=== PATIENT | male | born 1965 | race Caucasian/White ===

== ENCOUNTER → 2017-08-31 | Outpatient (CLI) | payer BC ==
--- NOTE | 2017-08-31 10:34 | RADIOLOGY REPORT (SQ) ---
EXAM DESCRIPTION: MRI ABDOMEN COMBO COMPLETED DATE/TIME: 08/31/2017 10:10 am REASON FOR STUDY: HEPATIC LESION (K76.9) K76.9 LIVER DISEASE, UNSPECIFIED COMPARISON: Right upper quadrant ultrasound 08/24/2017 TECHNIQUE: Multiplanar multisequence imaging performed without and with contrast including sagittal, axial and coronal T2, axial T1, axial gradient fat sat T1, axial, sagittal and coronal fat sat T1 po st contrast. CONTRAST TYPE AND DOSE: 20 mL Prohance. RENAL FUNCTION: GFR > 60. LIMITATIONS: None. FINDINGS: LIVER: Multiple liver masses are present worrisome for metastatic disease. The right lobe liver is near completely replaced by tumor measuring 18 x 9 cm in size. In the left lobe liver, the re are multiple lesions, the largest is 5 cm in diameter. There are enlarged abnormal robinson hepatis lymph nodes, 4 x 2 cm, 2 x 1.4 cm, 2 x 1.7 cm in size. Normal flow signal in the main portal vein and right and left portal vein. Significant narrowing of the right hepatic vein by tumor. Right hepatic vein is, and enhances postcontrast SPLEEN: Normal size. No focal lesions. PANCREAS: No masses. No adjacent inflammation or peripancreatic fluid collections. Pancreatic duct no t dilated. GALLBLADDER: No masses. No stones. No gallbladder wall thickening or pericholecystic fluid. ADRENAL GLANDS: No significant masses or asymmetry. RIGHT KIDNEY AND URETER: No masses. No hydronephrosis. LEFT KIDNEY AND URETER: No masses. No hydronephrosis. 1.8 cm cyst left mid pole kidney. AORTA AND VESSELS: No aneurysm. No dissection. Renal arteries, SMA, celiac without stenosis. RETROPERITONEUM: No retroperitoneal adenopathy, hemorrhage or masses. BOWEL: Not well seen ABDOMINAL WALL AND PERITONEUM: No hernias. No free fluid. BONES: 2 x 1.5 cm lytic enhancing lesion in the right T8 vertebral body worrisome for metastatic dise ase OTHER: No other significant finding. IMPRESSION: Findings worrisome for metastatic disease to liver, robinson hepatis lymph nodes, and lower thoracic spine TECHNICAL DOCUMENTATION: JOB ID: [id number]- All Rights Reserved
== END ==
LOC: RAD 08:13
PROVIDERS: ATTEND Internal Medicine
DX: K76.9 Liver disease, unspecified (principal)
CPT/HCPCS: 74183; A9576

== ENCOUNTER → 2017-09-20 | Outpatient (CLI) | payer BC ==
--- NOTE | 2017-09-21 18:56 | RADIOLOGY REPORT (SQ) ---
EXAM DESCRIPTION: PET CT SKULL/THIGH COMPLETED DATE/TIME: 09/20/2017 10:22 pm REASON FOR STUDY: LIVER CANCER C22.8 MALIGNANT NEOPLASM OF LIVER, PRIMARY, UNSPECIFIED T COMPARISON: MRI abdomen 08/31/2017 Abdominal ultrasound 08/24/2017 RADIONUCLIDE AND DOSE: 11.5 mCi F18 FDG The route of agent administration: Intravenous FASTING BLOOD SUGAR: 105 mg/dl CONTRAST TYPE AND DOSE: No CT contrast given. TECHNIQUE: Blood glucose level was verified. Above dose of FDG was injected intravenously. 2-D seg mented attenuation correction images were obtained from the base of the skull to the midthighs. Nonc ontrast CT images were obtained for attenuation correction and fusion with emission images. CT image s were performed without oral or intravenous contrast and are not sensitive for parenchymal lesions. A series of overlapping emission PET images were obtained. Images reviewed and manipulated at [facility] work station by the radiologist. Images stored on PACS. LIMITATIONS: None. FINDINGS: HEAD AND NECK: No areas of abnormal metabolic activity in the soft tissues of the head and neck. Surgical clips post thyroidectomy CHEST: Hypermetabolic 2.4 x 1.1 cm left supraclavicular lymph node image 63, with SUV of 7.6. Hypermetabolic mediastinal adenopathy as follows: Right paratracheal 1.7 x 1.6 cm node image 78, SUV 5.1. Sub- carinal 2.9 x 4.2 cm node image 92, SUV 12.4 Left hilar 1.9 cm node image 93, SUV 6.3. Too numerous to count lung masses are present. Index nodules are as follows: Right upper lobe nodule 1.8 x 1.7 cm axial image 76, 2.6 SUV Right lower lobe 2.4 x 2.4 cm nodule axial image 105, 7.5 SUV Left lower lobe 2 x 2 cm nodule image 78, 5.4 SUV ABDOMEN AND PELVIS: The liver is near completely replaced with hypermetabolic tumor with SUV of 8.7 PROXIMAL LOWER EXTREMITIES: No areas of abnormal metabolic activity in the soft tissues of the lower extremities. BONES: Small bony metastatic lesions are present in the sternum and right ischium ADDITIONAL CT FINDINGS: Multiple old healed left rib fractures OTHER: Estimated liver background SUV 2.0. Blood pool background SUV 1.5 IMPRESSION: Heaviest burden of tumor is in the liver Mediastinal and left supraclavicular adenopathy with multiple pulmonary nodules worrisome for metasta tic disease TECHNICAL DOCUMENTATION: JOB ID: [id number] [employer]- All Rights Reserved
== END ==
LOC: RAD 19:20
PROVIDERS: ATTEND Internal Medicine
DX: C22.8 Malignant neoplasm of liver, primary, unspecified as to type (principal); R91.8 Other nonspecific abnormal finding of lung field
CPT/HCPCS: 78815; A9552

== ENCOUNTER 2017-09-23 09:11 | Day surgery (SDC) | payer BC ==
[2017-09-23 10:05] LABS: HEMATOCRIT 42.9 % (37.9-51.0); HEMOGLOBIN 14.2 g/dL (13.5-17.0); HGB HCT DIFFERENCE -0.3; MEAN CORPUSCULAR HEMOGLOBIN 28.9 pg (27.0-33.4); MEAN CORPUSCULAR VOLUME 88 fl (80-97); RED BLOOD COUNT 4.91 10^6/uL (4.35-5.55); RED CELL DISTRIBUTION WIDTH 14.8 % (11.5-14.0); WHITE BLOOD COUNT 6.7 10^3/uL (4.0-10.5)
[2017-09-23 10:06] LABS: PARTIAL THROMBOPLASTIN TIME 29.1 SEC (23.5-35.8); PROTHROMBIN TIME 14.1 SEC (11.4-15.4)
[2017-09-23 10:27] LABS: BLOOD UREA NITROGEN 14 mg/dL (7-20); CREATININE RESULT 1.04 mg/dL (0.52-1.25)
[2017-09-23] MEDS ORDERED: MIDAZOLAM 2 MG/2 ML INJ ONE (10:28)
[2017-09-23] MEDS ORDERED: FENTANYL CITRATE INJ/PF 100 MCG/2 ML AMPUL ONE (10:29)
[2017-09-23] MEDS ORDERED: ONDANSETRON HCL INJ/PF 4 MG/2 ML SDV ONE (11:04)
--- NOTE | 2017-09-23 13:34 | RADIOLOGY REPORT (SQ) ---
EXAM DESCRIPTION: CT BIOPSY LIVER; CT NEEDLE PLACEMENT COMPLETED DATE/TIME: 09/23/2017 11:56 am REASON FOR STUDY: NEOPLASM OF LIVER; NEOPLASM OF LIVER, LIVER BX C22.8 MALIGNANT NEOPLASM OF LIVER, PRIMARY, UNSPECIFIED T C73 MALIGNANT NEOPLASM OF THYROID GLAND COMPARISON: Abdominal ultrasound 08/24/2017 MRI abdomen 08/31/2017 PET-CT 09/20/2017 TECHNIQUE: After obtaining informed consent, the patient was brought to the CT suite and was placed supine on the CT gurney. The patient was prepped and draped in the usual sterile fashion . Axial yoandy ges were obtained for targeting of theinferior right lobe liver. An appropriate access site was selec anirudh. IV sedation was administered and physician direction by the registered nurse using 1 milligrams of Versed and 75 micrograms of fentanyl. Physiologic monitoring was provided before, during, and afte r sedation. The total sedation time was 35 minutes. Documentation face to face time, the performing proceduralist, spent monitoring the patient: 8minutes . Noncontrasted CT of the liver was performed to localize an approach for the right lobe liver biopsy . A percutaneous site was marked. Time out was performed. After skin prep and local lidocaine for skin and deep tissue anesthesia, a coaxial biopsy needle sys tem was used to obtain six 18 gauge cores of tissue from the right lobe liver. These were submitted to the lab in formalin. Biopsy tract was embolized with a Gelfoam plug. No immediate postprocedure complications. Total of 3.[address] fluoro was used. All CT scanners at this facility use dose modulation, iterative reconstruction, and/or weight based d osing when appropriate to reduce radiation dose to as low as reasonably achievable (ALARA). [facility]: Dose Right [facility]: CareDose [facility]: Dose Right [facility]: Teradose 4D [facility]: [employer] RADIATION DOSE: CT Rad equipment meets quality standard of care and radiation dose reduction techniq ues were employed. CTDIvol: 20.4 mGy. DLP: 554 mGy-cm. mGy. LIMITATIONS: None. FINDINGS: CT guided liver biopsy as detailed above. IMPRESSION: CT GUIDED RIGHT LOBE LIVER MASS LIVER BIOPSY PERFORMED ABOVE. PATHOLOGY PENDING. N O IMMEDIATE COMPLICATIONS. COMMENT: Patient medication list reviewed:Yes- Quality ID# [id number]:Eligible professional attests to docu menting in the medical record they obtained, updated, or reviewed the patient's current medications.. Quality ID 145: Final reports for procedures using fluoroscopy that document radiation exposure anahi nathaly, or exposure time and number of fluorographic images (if radiation exposure indices are not avail able) TECHNICAL DOCUMENTATION: JOB ID: [id number] Quality ID # [id number]: Final reports with documentation of one or more dose reduction techniques (e.g., A utomated exposure control, adjustment of the mA and/or kV according to patient size, use of iterative reconstruction technique) 2010 [email or web address]- All Rights Reserved
[2017-09-23 14:09] VITALS: BP 151/85
== END 2017-09-23 14:00 | disposition home or self-care (01) ==
LOC: RAD 09:11
PROVIDERS: ATTEND Internal Medicine
PROC: 0FB13ZX Excision of Right Lobe Liver, Percutaneous Approach, Diagnostic (ICD-10-PCS; principal; 2017-09-23)
DX: C22.7 Other specified carcinomas of liver (principal); E89.0 Postprocedural hypothyroidism; Z85.850 Personal history of malignant neoplasm of thyroid; Z79.899 Other long term (current) drug therapy; Z87.891 Personal history of nicotine dependence
CPT/HCPCS: 36415; 84520; 82565; 85027; 85610; 85730; 88342 ×2; 88341 ×2; 88305 ×2; 88313 ×2; 77012; 47000; J2250; J3010; J2405

== ENCOUNTER → 2017-10-02 | Outpatient (CLI) | payer BC ==
[2017-10-02 11:12] LABS: ALANINE AMINOTRANSFERASE 69 U/L (21-72); ALBUMIN 3.7 g/dL (3.5-5.0); ALKALINE PHOSPHATASE 243 U/L (38-126); ANION GAP 6 (5-19); ASPARTATE AMINO TRANSFERASE 144 U/L (17-59); BILIRUBIN,DIRECT 0.5 mg/dL (0.0-0.4); BILIRUBIN,TOTAL 1.8 mg/dL (0.2-1.3); BLOOD UREA NITROGEN 14 mg/dL (7-20); CALCIUM 11.8 mg/dL (8.4-10.2); CARBON DIOXIDE 33 mmol/L (22-30); CHLORIDE 102 mmol/L (98-107); GLUCOSE 91 mg/dL (75-110); POTASSIUM 4.5 mmol/L (3.6-5.0); SODIUM 141.4 mmol/L (137-145); TOTAL PROTEIN 6.9 g/dL (6.3-8.2)
== END ==
LOC: OD 09:50
DX: C22.1 Intrahepatic bile duct carcinoma (principal); E83.52 Hypercalcemia
CPT/HCPCS: 36415; 80053

== ENCOUNTER → 2017-10-07 | Outpatient (CLI) | payer BC ==
[2017-10-07 14:12] LABS: ALANINE AMINOTRANSFERASE 73 U/L (21-72); ALBUMIN 3.7 g/dL (3.5-5.0); ALKALINE PHOSPHATASE 266 U/L (38-126); ANION GAP 10 (5-19); ASPARTATE AMINO TRANSFERASE 136 U/L (17-59); BILIRUBIN,DIRECT 0.6 mg/dL (0.0-0.4); BILIRUBIN,TOTAL 1.6 mg/dL (0.2-1.3); BLOOD UREA NITROGEN 11 mg/dL (7-20); CALCIUM 11.2 mg/dL (8.4-10.2); CARBON DIOXIDE 29 mmol/L (22-30); CHLORIDE 102 mmol/L (98-107); GLUCOSE 118 mg/dL (75-110); POTASSIUM 4.2 mmol/L (3.6-5.0); SODIUM 140.9 mmol/L (137-145); TOTAL PROTEIN 6.8 g/dL (6.3-8.2)
== END ==
LOC: OD 12:50
DX: C22.1 Intrahepatic bile duct carcinoma (principal); E83.52 Hypercalcemia
CPT/HCPCS: 36415; 80053

== ENCOUNTER → 2017-11-13 | Outpatient (CLI) | payer BC, MEDICAID ==
--- NOTE | 2017-11-14 14:45 | RADIOLOGY REPORT (SQ) ---
EXAM DESCRIPTION: MRI ABDOMEN COMBO COMPLETED DATE/TIME: 11/13/2017 7:37 pm REASON FOR STUDY: INTRAHEPATIC BILE DUCT CARCINOMA COMPARISON: 08/31/2017 TECHNIQUE: Axial T2, T2 fat sat weighted sequences without contrast. Images saved to PACs. LIMITATIONS: Body habitus. Motion. Patient unable to complete remaining sequences including post-c ontrast sequences. FINDINGS: Increase in ascites which is now all moderate. Increase in size and number of hepatic les ions since the prior. More extensive involvement of the left lobe. Kidneys, pancreas, spleen unrema rkable. No evidence of aortic aneurysm. Multiple pulmonary nodules. IMPRESSION: Interval disease progression in the liver and lungs. TECHNICAL DOCUMENTATION: JOB ID: [id number] [employer]- All Rights Reserved
== END ==
LOC: RAD 17:43
PROVIDERS: ATTEND Nurse Practitioner Primary Care
DX: C22.1 Intrahepatic bile duct carcinoma (principal)
CPT/HCPCS: 74183; 82565

== ENCOUNTER 2017-12-07 13:59 | Emergency (ER) | payer BC, MEDICAID ==
[2017-12-07] MEDS ORDERED: FUROSEMIDE INJ/PF 40 MG/4 ML SDV IV ONE (14:34)
--- NOTE | 2017-12-07 14:36 | ER Document Report ---
ED Medical Screen (RME) - General Chief Complaint: Abdominal Pain Stated Complaint: ABDOMINAL PAIN Time Seen by Provider: 12/07/17 14:33 Notes: metastatic liver cancer, has severe abd pain/distention and sob TRAVEL OUTSIDE OF THE [place] IN LAST 30 DAYS: No - Related Data Allergies/Adverse Reactions: No Known Allergies Allergy (Verified 12/07/17 13:59) Past Medical History - Social History Chew tobacco use (# tins/day): No Frequency of alcohol use: None Drug Abuse: None - Past Medical History Cardiac Medical History: Reports: Hx Hypertension - ON MEDICATION Denies: Hx Coronary Artery Disease, Hx Heart Attack Pulmonary Medical History: Denies: Hx Asthma, Hx Bronchitis, Hx COPD, Hx Pneumonia Neurological Medical History: Denies: Hx Cerebrovascular Accident, Hx Seizures Renal/ Medical History: Denies: Hx Peritoneal Dialysis Musculoskeltal Medical History: Reports Hx Arthritis - BACK Past Surgical History: Reports: Hx Orthopedic Surgery, Hx Thyroid Surgery - Immunizations Hx Diphtheria, Pertussis, Tetanus Vaccination: No - UNSURE History of Influenza Vaccine for 07/2017 - 12/2017 Season: No Physical Exam - Vital signs Vitals: Temp Pulse Resp BP Pulse Ox 98.5 F 108 H 18 140/92 H 97 12/07/17 14:03 12/07/17 14:03 12/07/17 14:03 12/07/17 14:03 12/07/17 14:03 Course - Vital Signs Vital signs: Temp Pulse Resp BP Pulse Ox 98.5 F 108 H 18 140/92 H 97 12/07/17 14:03 12/07/17 14:03 12/07/17 14:03 12/07/17 14:03 12/07/17 14:03
--- NOTE | 2017-12-07 15:18 | RADIOLOGY REPORT (SQ) ---
EXAM DESCRIPTION: CHEST SINGLE VIEW COMPLETED DATE/TIME: 12/07/2017 2:58 pm REASON FOR STUDY: sob COMPARISON: PET-CT 09/20/2017 EXAM PARAMETERS: NUMBER OF VIEWS: One view. TECHNIQUE: Single frontal radiographic view of the chest acquired. RADIATION DOSE: NA LIMITATIONS: None. FINDINGS: LUNGS AND PLEURA: Multiple lung metastatic nodules are present bilaterally. No acute infiltrates. No pleural effusion. No pneumothorax. MEDIASTINUM AND HILAR STRUCTURES: No masses. Contour normal. HEART AND VASCULAR STRUCTURES: Heart normal in size. Normal vasculature. BONES: Old left anterior lower rib fractures. HARDWARE: Right-sided permanent central line tip superior vena cava OTHER: No other significant finding. IMPRESSION: No acute infiltrates or pleural effusion. No pneumothorax. Multiple lung parenchymal metastatic nodules are present. TECHNICAL DOCUMENTATION: JOB ID: [id number] [employer]- All Rights Reserved Reading location - IP/workstation name: [email or web address]
--- NOTE | 2017-12-07 15:29 | ER Document Report ---
ED GI/ - General Mode of Arrival: Ambulatory Information source: Patient TRAVEL OUTSIDE OF THE [place] IN LAST 30 DAYS: No <EZEKIEL JAIMES - Last Filed: 12/07/17 17:37> <SHIREEN GLYNN - Last Filed: 12/07/17 23:18> - General Chief Complaint: Abdominal Pain Stated Complaint: ABDOMINAL PAIN Time Seen by Provider: 12/07/17 14:33 Notes: Patient is a 52-year-old male who presents to the emergency department today with complaints of abdominal pain with associated abdominal distention. Patient has a history of liver cancer with metastasis to the lung and bone. Patient has had 4 chemotherapy treatments and 5 radiation treatments since being diagnosed in August 2017. Patient's mother at bedside states she called the patient's PA at [facility] and she mentioned having a paracentesis done tomorrow. Patient states he has had progressing distention for the last few weeks but today the pain became unbearable. Patient states he cannot breathe when lying down flat. Patient complains of nausea but denies any vomiting, fevers, red, or black stool. (EZEKIEL JAIMES) - Related Data Allergies/Adverse Reactions: No Known Allergies Allergy (Verified 12/07/17 13:59) Past Medical History - General Information source: Patient - Social History Smoking Status: Former Smoker Cigarette use (# per day): No Chew tobacco use (# tins/day): No Frequency of alcohol use: None Drug Abuse: None Lives with: Family Family History: Reviewed & Not Pertinent Patient has suicidal ideation: No Patient has homicidal ideation: No - Past Medical History Cardiac Medical History: Reports: Hx Hypertension - ON MEDICATION Malignancy Medical History: Reports Other - Liver cancer with metastasis to the lung, T8, and sternum Musculoskeltal Medical History: Reports Hx Arthritis - BACK Past Surgical History: Reports: Hx Orthopedic Surgery, Hx Thyroid Surgery - Immunizations Hx Diphtheria, Pertussis, Tetanus Vaccination: No - UNSURE <EZEKIEL JAIMES - Last Filed: 12/07/17 17:37> Review of Systems - Review of Systems Constitutional: denies: Fever EENT: No symptoms reported Cardiovascular: No symptoms reported Respiratory: No symptoms reported Gastrointestinal: See HPI, Abdomen distended, Abdominal pain, Diarrhea, Nausea. denies: Vomiting, Blood streaked bowels, Black stools Genitourinary: No symptoms reported Male Genitourinary: No symptoms reported Musculoskeletal: No symptoms reported Skin: No symptoms reported Hematologic/Lymphatic: No symptoms reported Neurological/Psychological: No symptoms reported -: Yes All other systems reviewed and negative <EZEKIEL JAIMES - Last Filed: 12/07/17 17:37> Physical Exam <EZEKIEL JAIMES - Last Filed: 12/07/17 17:37> <SHIREEN GLYNN - Last Filed: 12/07/17 23:18> - Vital signs Vitals: Temp Pulse Resp BP Pulse Ox 98.5 F 108 H 18 140/92 H 97 12/07/17 14:03 12/07/17 14:03 12/07/17 14:03 12/07/17 14:03 12/07/17 14:03 - Notes Notes: Physical Exam: General: Alert. Appears uncomfortable. HEENT: Normocephalic. Atraumatic. PERRL. Extraocular movements intact. Oropharynx clear. Neck: Supple. Non-tender. Respiratory: No respiratory distress. Moderate bibasilar crackles bilaterally. Cardiovascular: Regular rate and rhythm. Abdominal: Moderate to severe distension, tight to the touch, bedside ultrasound revealed large amounts of ascitic fluid, complains of shortness of breath when lying down for ultrasound. Normal Bowel Sounds. Back: Non-tender. No deformity or step off. Extremities: Moves all four extremities. Upper extremities: Normal inspection. Normal ROM. Lower extremities: Wearing compression stockings, 2+ pitting edema bilaterally. Normal ROM. Neurological: Normal cognition. AAOx4. Normal speech. Psychological: Normal affect. Normal Mood. Skin: Warm. Dry. Normal color. (EZEKIEL JAIMES) Course - Laboratory Result Diagrams: 12/07/17 15:44 12/07/17 15:44 <EZEKIEL JAIMES - Last Filed: 12/07/17 17:37> - Laboratory Result Diagrams: 12/07/17 15:44 12/07/17 15:44 <SHIREEN GLYNN - Last Filed: 12/07/17 23:18> - Re-evaluation Re-evalutation: 12/07/17 17:33 Patient shows low calcium 6.6 but he is on medications that can lower his calcium due to his bony metastasis per the nurse practitioner at [facility]. Was able to get in touch with the nurse practitioner her name is Crystal Ledezma. She knows the patient states that he has follow-up for labs and therapeutic paracentesis tomorrow at 9:30 AM. I reviewed the patient's labs over the phone and stated that I would send a printout with him. I will provide OxyContin for his relief until he can have his therapeutic tap tomorrow. Patient shows no signs of neutropenia although he does have a low white cell count. He is not running a fever and overall is well-appearing. ( SHIREEN GLYNN) - Vital Signs Vital signs: Temp Pulse Resp BP Pulse Ox 98.5 F 108 H 16 117/75 96 12/07/17 14:03 12/07/17 14:03 12/07/17 17:31 12/07/17 17:31 12/07/17 17:31 - Laboratory Laboratory results interpreted by me: 12/07/17 12/07/17 15:44 15:44 WBC 2.4 L RBC 4.24 L Hgb 12.8 L RDW 18.2 H Lymphocytes % (Manual) 7 L Abs Lymphs (Manual) 0.2 L Potassium 3.5 L Glucose 115 H Calcium 6.6 L* Direct Bilirubin 0.6 H AST 84 H Alkaline Phosphatase 240 H Total Protein 5.6 L Albumin 2.9 L Discharge <EZEKIEL JAIMES - Last Filed: 12/07/17 17:37> <SHIREEN GLYNN - Last Filed: 12/07/17 23:18> - Discharge Clinical Impression: Ascites Qualifiers: Ascites type: malignant Qualified Code(s): R18.0 - Malignant ascites Abdominal pain Qualifiers: Abdominal location: generalized Qualified Code(s): R10.84 - Generalized abdominal pain Condition: Stable Disposition: HOME, SELF-CARE Instructions: Abdominal Pain ([facility]) Prescriptions: Oxycodone HCl [Oxycontin Ir 5 Mg Tablet] 1 - 2 mg PO Q4H PRN #10 tablet PRN Reason: For Pain Scribe Attestation: 12/07/17 17:39 I personally performed the services described in the documentation, reviewed and edited the documentation which was dictated to the scribe in my presence, and it accurately records my words and actions. (EZEKIEL JAIMES) 12/07/17 23:18 I personally performed the services described documentation, reviewed and edited the documentation which was dictated to describe my presence, and it accurately records my words and actions. (SHIREEN GLYNN) Scribe Documentation - Scribe Written by Nayana:: Nayana Robert, 12/07/2017 1613 acting as scribe for :: Tono <EZEKIEL JAIMES - Last Filed: 12/07/17 17:37>
[2017-12-07 16:02] LABS: HEMOGLOBIN 12.8 g/dL (13.5-17.0); MEAN CORPUSCULAR HEMOGLOBIN 30.1 pg (27.0-33.4); MEAN CORPUSCULAR HGB CONC 33.6 g/dL (32.0-36.0); MEAN CORPUSCULAR VOLUME 90 fl (80-97); PLATELET COUNT 257 10^3/uL (150-450); RED BLOOD COUNT 4.24 10^6/uL (4.35-5.55); RED CELL DISTRIBUTION WIDTH 18.2 % (11.5-14.0); WHITE BLOOD COUNT 2.4 10^3/uL (4.0-10.5)
[2017-12-07 16:27] LABS: ALANINE AMINOTRANSFERASE 47 U/L (21-72); ALBUMIN 2.9 g/dL (3.5-5.0); ALKALINE PHOSPHATASE 240 U/L (38-126); ANION GAP 9 (5-19); ASPARTATE AMINO TRANSFERASE 84 U/L (17-59); BILIRUBIN,DIRECT 0.6 mg/dL (0.0-0.4); BILIRUBIN,TOTAL 1.1 mg/dL (0.2-1.3); BLOOD UREA NITROGEN 16 mg/dL (7-20); CARBON DIOXIDE 30 mmol/L (22-30); CHLORIDE 99 mmol/L (98-107); GLUCOSE 115 mg/dL (75-110); LIPASE 187.3 U/L (23-300); POTASSIUM 3.5 mmol/L (3.6-5.0); SODIUM 138.3 mmol/L (137-145); TOTAL PROTEIN 5.6 g/dL (6.3-8.2)
[2017-12-07 16:39] LABS: CALCIUM 6.6 mg/dL (8.4-10.2)
[2017-12-07 16:46] LABS: ABSOLUTE LYMPHOCYTES# (MANUAL) 0.2 10^3/uL (0.5-4.7); ABSOLUTE MONOCYTES # (MANUAL) 0.3 10^3/uL (0.1-1.4); ABSOLUTE NEUTROPHILS# (MANUAL) 1.9 10^3/uL (1.7-8.2); BAND NEUTROPHILS % (MANUAL) 5 % (3-5); BASOPHILS % (MANUAL) 0 % (0-2); EOSINOPHILS % (MANUAL) 1 % (0-6); LYMPHOCYTES % (MANUAL) 7 % (13-45); MONOCYTES % (MANUAL) 11 % (3-13); NUCLEATED RED BLOOD CELLS 1 /100 WBC (0); SEGMENTED NEUTROPHILS % (MAN) 76 % (42-78); TOTAL CELLS COUNTED 100
[2017-12-07 16:47] LABS: ANISOCYTOSIS 1+; HYPOCHROMASIA SLIGHT; PLATELET COMMENT ADEQUATE
[2017-12-07] MEDS ORDERED: HYDROMORPHONE HCL INJ/PF 2 MG/ML AMPULE IV ONE (17:19)
[2017-12-07 17:39] VITALS: BP 117/75
== END 2017-12-07 17:56 | disposition home or self-care (01) ==
LOC: ER 13:59
DX: C22.8 Malignant neoplasm of liver, primary, unspecified as to type (principal); R18.0 Malignant ascites; C78.02 Secondary malignant neoplasm of left lung; C78.01 Secondary malignant neoplasm of right lung; C79.51 Secondary malignant neoplasm of bone; Z79.899 Other long term (current) drug therapy; R10.84 Generalized abdominal pain; R11.0 Nausea; R19.7 Diarrhea, unspecified; R06.02 Shortness of breath; I10 Essential (primary) hypertension; Z87.891 Personal history of nicotine dependence
CPT/HCPCS: 36591; 99284; 96374; 96375; 36415; 83690; 85025; 80053; 71045; J1940; J1170

== ENCOUNTER 2018-01-02 14:41 | Emergency (ER) | payer BC, MEDICAID ==
--- NOTE | 2018-01-02 15:42 | ER Document Report ---
ED Medical Screen (RME) - General Mode of Arrival: Wheelchair Information source: Patient, Parent TRAVEL OUTSIDE OF THE [place] IN LAST 30 DAYS: No - HPI Patient complains to provider of: Back pain Onset: This morning Associated Symptoms: Other - see notes above - General Chief Complaint: Back Pain Stated Complaint: BACK PAIN Time Seen by Provider: 01/02/18 15:34 Notes: 52 year old male with history of metastatic lung cancer presents to the ED complaining of back pain that started this morning when rolling over in bed. Patient states that he has chronic back pain, but this feels worse than before. Patient has 5 mg Oxycodone at home and states he took some this morning to no relief. Patient denies numbness or tingling. Mother states that the patient does have some lesions to his lung and bone. Oncologist: Dr. Gallagher at [place] (NADIA UMAÑA) - Related Data Allergies/Adverse Reactions: No Known Allergies Allergy (Verified 01/02/18 14:43) Past Medical History - General Information source: Patient - Past Medical History Cardiac Medical History: Reports: Hx Hypertension - ON MEDICATION Denies: Hx Coronary Artery Disease, Hx Heart Attack Pulmonary Medical History: Denies: Hx Asthma, Hx Bronchitis, Hx COPD, Hx Pneumonia Neurological Medical History: Denies: Hx Cerebrovascular Accident, Hx Seizures Renal/ Medical History: Denies: Hx Peritoneal Dialysis Musculoskeltal Medical History: Reports Hx Arthritis - BACK Past Surgical History: Reports: Hx Orthopedic Surgery, Hx Thyroid Surgery - Immunizations Hx Diphtheria, Pertussis, Tetanus Vaccination: No - UNSURE History of Influenza Vaccine for 07/2017 - 12/2017 Season: No Review of Systems - Review of Systems Constitutional: No symptoms reported EENT: No symptoms reported Cardiovascular: No symptoms reported Respiratory: No symptoms reported Gastrointestinal: No symptoms reported Genitourinary: No symptoms reported Male Genitourinary: No symptoms reported Musculoskeletal: See HPI, Back pain Skin: No symptoms reported Hematologic/Lymphatic: No symptoms reported Neurological/Psychological: No symptoms reported. denies: Numbness, Tingling -: Yes All other systems reviewed and negative Physical Exam - General General appearance: Alert - Abdominal Inspection: Other - Large amount of ascities. Drain to the right side of the abdomen and is in good position.. No: Normal Bowel sounds: Normal - Back Back: Tender - Tenderness to palpation of the paraspinal muscles from mid to low thoracic.. No: Normal - Extremities General lower extremity: Edema - Neurological Additional motor exam normals: Dorsiflexion, Plantar flexion - Vital signs Vitals: Temp Pulse Resp BP Pulse Ox 97.5 F 124 H 20 121/86 H 99 01/02/18 14:52 01/02/18 14:52 01/02/18 14:52 01/02/18 14:52 01/02/18 14:52 - Vital Signs Vital signs: Temp Pulse Resp BP Pulse Ox 97.5 F 124 H 20 121/86 H 99 01/02/18 14:52 01/02/18 14:52 01/02/18 14:52 01/02/18 14:52 01/02/18 14:52 Scribe Documentation - Scribe Written by Nayana:: Nayana Tripathi, 01/02/2018 1620 acting as scribe for :: Kay
--- NOTE | 2018-01-02 16:16 | RADIOLOGY REPORT (SQ) ---
EXAM DESCRIPTION: SPINE ENTIRE AP/LAT COMPLETED DATE/TIME: 01/02/2018 4:03 pm REASON FOR STUDY: met CA, rolled over in bed, severe back pain COMPARISON: None. TECHNIQUE: Frontal and lateral radiographs of the cervical, thoracic, and lumbar spine were obtained . LIMITATIONS: None. FINDINGS: The cervical spine demonstrates normal alignment with preserved intervertebral disc spaces , noting prominent, flowing anterior marginal osteophytes. Likewise, facet arthropathy and uncoverte bral hypertrophy is seen at all levels. The thoracic spine demonstrates normal vertebral body alignment and preserved intervertebral disc spa nathaly, noting contiguous anterior marginal osteophytes. There are 5 lumbar type vertebral bodies demonstrating normal body height and alignment. The posteri or elements appear to be intact. The intervertebral disc spaces appear to be largely preserved. Pro minent anterior marginal osteophytes are present. No suspicious lytic or blastic osseous lesions are visualized. No wedge compression deformities are present. The visualized portions of the pelvis are unremarkable. IMPRESSION: No evidence of acute osseous injury or suspicious lytic/blastic osseous lesions in this patient with reported metastatic cancer. TECHNICAL DOCUMENTATION: JOB ID: [id number]- All Rights Reserved Reading location - IP/workstation name: [email or web address]
--- NOTE | 2018-01-02 16:38 | ER Document Report ---
ED General - General Chief Complaint: Back Pain Stated Complaint: BACK PAIN Time Seen by Provider: 01/02/18 15:34 Mode of Arrival: Wheelchair Information source: Patient, Relative Notes: The patient is accompanied with his mother. He is a 52-year-old man with a history of metastatic liver cancer (diagnosed in August, started chemotherapy in September), known metastases to the lung and T8 (status post radiation therapy ). The patient is followed by at [facility]. He presents to the emergency room with back pain. Patient's mother states that the patient was out walking around yesterday in the backyard and was getting up into his truck (which is high off the ground) to started up. She thinks he may have exacerbated his back both walking around and negotiating getting into the truck. There is no history of recent fall. Patient was able to walk into the emergency room. There is no new motor weakness or sensory loss. Past medical history includes a remote history of thyroid cancer Past surgical history: Thyroidectomy Peritoneal tube: Draining ascites at night. TRAVEL OUTSIDE OF THE [place] IN LAST 30 DAYS: No - HPI Onset: Yesterday Onset/Duration: Gradual Quality of pain: Dull Severity: Moderate Pain Level: 2 Associated symptoms: denies: Nonproductive cough, Productive cough, Fever, Nausea, Vomiting, Shortness of breath Exacerbated by: Movement Relieved by: Remaining still Similar symptoms previously: Yes Recently seen / treated by doctor: Yes - Related Data Allergies/Adverse Reactions: No Known Allergies Allergy (Verified 01/02/18 14:43) Past Medical History - General Information source: Patient - Social History Smoking Status: Former Smoker Cigarette use (# per day): No Chew tobacco use (# tins/day): No Smoking Education Provided: No Frequency of alcohol use: None Drug Abuse: None Lives with: Family Family History: Reviewed & Not Pertinent Patient has suicidal ideation: No Patient has homicidal ideation: No - Past Medical History Cardiac Medical History: Reports: Hx Hypertension - ON MEDICATION Denies: Hx Coronary Artery Disease, Hx Heart Attack Pulmonary Medical History: Denies: Hx Asthma, Hx Bronchitis, Hx COPD, Hx Pneumonia Neurological Medical History: Denies: Hx Cerebrovascular Accident, Hx Seizures Endocrine Medical History: Reports: Other - Thyroid cancer status post thyroidectomy Renal/ Medical History: Denies: Hx Peritoneal Dialysis GI Medical History: Reports: Other - Liver cancer Musculoskeltal Medical History: Reports Hx Arthritis - BACK Past Surgical History: Reports: Hx Orthopedic Surgery, Hx Thyroid Surgery - Immunizations Hx Diphtheria, Pertussis, Tetanus Vaccination: No - UNSURE Review of Systems - Review of Systems Constitutional: denies: Chills, Fever EENT: No symptoms reported Cardiovascular: No symptoms reported Respiratory: No symptoms reported Gastrointestinal: No symptoms reported Genitourinary: No symptoms reported Male Genitourinary: No symptoms reported Musculoskeletal: See HPI Skin: No symptoms reported Hematologic/Lymphatic: No symptoms reported Neurological/Psychological: No symptoms reported Physical Exam - Vital signs Vitals: Temp Pulse Resp BP Pulse Ox 97.5 F 124 H 20 121/86 H 99 01/02/18 14:52 01/02/18 14:52 01/02/18 14:52 01/02/18 14:52 01/02/18 14:52 Notes: Physical exam: GENERAL: 52-year-old man, alert and oriented 3, lying in stretcher, complaining of back pain HEAD: Atraumatic, normocephalic. EYES: Pupils equal round and reactive to light, extraocular movements intact, sclera anicteric, conjunctiva are normal. ENT: TMs normal, nares patent, oropharynx clear without exudates. Moist mucous membranes. NECK: Normal range of motion, supple without obvious mass or JVD. LUNGS: Breath sounds clear to auscultation bilaterally and equal. No wheezes rales or rhonchi. HEART: Regular rate and rhythm without murmurs, rubs or gallops. ABDOMEN: Soft, normoactive bowel sounds. No tenderness to palpation. Abdomen is distended with ascites. Back: Patient has pain in the area of the thoracic spine. No step-offs or obvious crepitus. EXTREMITIES: Normal range of motion, no pitting or edema. No clubbing or cyanosis. NEUROLOGICAL: Cranial nerves II through XII grossly intact. Normal speech, moving all extremities. PSYCH: Normal mood, normal affect. SKIN: Warm, Dry, normal turgor, no rashes or lesions noted. Course - Vital Signs Vital signs: Temp Pulse Resp BP Pulse Ox 97.3 F 106 H 18 103/69 97 01/02/18 18:47 01/02/18 18:47 01/02/18 18:47 01/02/18 18:47 01/02/18 18:47 - Diagnostic Test Radiology reviewed: Image reviewed, Reports reviewed - CT of the T and L-spine shows stable metastatic lesion Discharge - Discharge Clinical Impression: Back pain , Metastatic liver cancer Condition: Stable Disposition: HOME, SELF-CARE Additional Instructions: As we discussed, the CT of the spine showed a stable cancer lesion at T8 without any evidence of acute fracture. Pain back there is to be expected: Continue pain medicines and other medicines. Follow-up with Dr. Cowart at [facility]: Bring a copy of the CT report as well as the actual study on disc. Return to the emergency room for any weakness to the lower extremities, fever or any concerns or getting worse. Also, follow-up with your primary care doctor. Referrals: KATRINA GARCIAS MD [Primary Care Provider] - Follow up as needed
[2018-01-02] MEDS ORDERED: MORPHINE SULFATE 10 MG/ML INJ IV ONE (16:40)
[2018-01-02] MEDS ORDERED: ONDANSETRON HCL INJ/PF 4 MG/2 ML SDV IV ONE (16:41)
[2018-01-02] MEDS ORDERED: NORMAL SALINE 500 ML IV ONE (16:42)
--- NOTE | 2018-01-02 17:54 | RADIOLOGY REPORT (SQ) ---
EXAM DESCRIPTION: CT LUMBAR SPINE WITHOUT COMPLETED DATE/TIME: 01/02/2018 5:28 pm REASON FOR STUDY: back pain, known mets COMPARISON: Correlation made to PET-CT from 09/20/2017. TECHNIQUE: Axial images acquired through the lumbar spine without intravenous contrast. Images revi ewed with lung, soft tissue and bone windows. Reconstructed coronal and sagittal MPR images reviewed . All images stored on PACS. All CT scanners at this facility use dose modulation, iterative reconstruction, and/or weight based d osing when appropriate to reduce radiation dose to as low as reasonably achievable (ALARA). [facility]: Dose Right [facility]: CareDose [facility]: Dose Right [facility]: Teradose 4D [facility]: [employer] RADIATION DOSE: mGy. LIMITATIONS: None. FINDINGS: SEGMENTATION: Normal. No transitional anatomy. ALIGNMENT: Normal. VERTEBRAL BODIES: No fractures. No dislocation. No acute findings. DISCS: Multilevel degenerative disc disease with osteophyte formation. PEDICLES, TRANSVERSE PROCESSES: No fractures. No dislocation. No acute findings. FACETS, POSTERIOR ELEMENTS: Multilevel facet arthropathy. No fractures. No dislocation. No spinal stenosis. HARDWARE: None in the spine. VISUALIZED RIBS: No fractures. SOFT TISSUES: No significant or acute finding in adjacent soft tissues. OTHER: No other significant finding. IMPRESSION: No fracture or suspicious osseous lesion identified. No significant change compared to prior PET-CT from 09/20/2017. TECHNICAL DOCUMENTATION: JOB ID: [id number] [facility] [id number]: Final reports with documentation of one or more dose reduction techniques (e.g., Automate d exposure control, adjustment of the mA and/or kV according to patient size, use of iterative recons truction technique) 2010 [employer]- All Rights Reserved Reading location - IP/workstation name: [email or web address]
--- NOTE | 2018-01-02 17:59 | RADIOLOGY REPORT (SQ) ---
EXAM DESCRIPTION: CT THORACIC SPINE WITHOUT COMPLETED DATE/TIME: 01/02/2018 5:28 pm REASON FOR STUDY: back pain, known mets COMPARISON: PET-CT from 09/20/2017. TECHNIQUE: Axial images acquired through the thoracic spine without intravenous contrast. Images re viewed with lung, soft tissue and bone windows. Reconstructed coronal and sagittal MPR images review ed. Images stored on PACS. All CT scanners at this facility use dose modulation, iterative reconstruction, and/or weight based d osing when appropriate to reduce radiation dose to as low as reasonably achievable (ALARA). [facility]: Dose Right [facility]: CareDose [facility]: Dose Right [facility]: Teradose 4D [facility]: [employer] RADIATION DOSE: CT Rad equipment meets quality standard of care and radiation dose reduction techniq ues were employed. CTDIvol: 59.2 mGy. DLP: 2269 mGy-cm. mGy. LIMITATIONS: None. FINDINGS: VISUALIZED LUNGS: No acute opacities. No pneumothorax. SOFT TISSUES: Stable. VERTEBRAL BODIES: Stable osseous metastatic lesion right T8 vertebral body. No fractures. No disloc ation. No acute findings. DISCS: Degenerative disc disease at multiple levels. ALIGNMENT: Normal. TRANSVERSE PROCESSES, POSTERIOR ELEMENTS: Hypertrophic osteophytes at multiple levels. HARDWARE: None in the spine. VISUALIZED RIBS: No acute fractures. OTHER: Grossly stable pulmonary and liver metastatic disease partially visualized on today's study. IMPRESSION: STABLE METASTATIC LESION T8 VERTEBRAL BODY WITHOUT ACUTE FRACTURE OR NEW OSSEOUS METASTA TIC LESIONS IDENTIFIED. STABLE LUNG AND LIVER METASTATIC DISEASE PARTIALLY VISUALIZED TECHNICAL DOCUMENTATION: JOB ID: [id number] From 09/20/2000 Quality ID # [id number]: Final reports with documentation of one or more dose reduction techniques (e.g., Au tomated exposure control, adjustment of the mA and/or kV according to patient size, use of iterative reconstruction technique) 2010 [employer]- All Rights Reserved Reading location - IP/workstation name: [email or web address]
[2018-01-02 18:50] VITALS: BP 103/69
[2018-01-02] MEDS ORDERED: OXYCODONE HCL IR 5 MG TABLET PO ONE (19:27)
== END 2018-01-02 19:50 | disposition home or self-care (01) ==
LOC: ER 14:41
DX: M54.6 Pain in thoracic spine (principal); C79.51 Secondary malignant neoplasm of bone; C22.8 Malignant neoplasm of liver, primary, unspecified as to type; C78.00 Secondary malignant neoplasm of unspecified lung; I10 Essential (primary) hypertension; Z85.850 Personal history of malignant neoplasm of thyroid; Z87.891 Personal history of nicotine dependence; Z79.899 Other long term (current) drug therapy; Z92.3 Personal history of irradiation
CPT/HCPCS: 36591; 99284; 96374; 96375; 72082; 72128; 72131; J2270; J2405; J7040

== ENCOUNTER 2018-01-14 19:46 | Emergency (ER) | payer BC, MEDICAID ==
--- NOTE | 2018-01-14 20:14 | ER Document Report ---
ED Medical Screen (RME) - General Chief Complaint: Chest Pain > 30 Stated Complaint: CHEST PAIN Time Seen by Provider: 01/14/18 20:12 Notes: RME DISCLOSURE I have seen this patient as part of a Rapid Medical Evaluation and, if applicable, placed any initially appropriate orders. The patient will be seen and fully evaluated, including a full history and physical exam, by a provider ( in Main ED or Fast Track) when a room becomes available. 52-year-old male here with complaints of left-sided nonradiating intermittent chest pain. He also has associated shortness of breath. Pain is worse with drinking something cold but not with exertion. Patient has a prior history of cancer. TRAVEL OUTSIDE OF THE [place] IN LAST 30 DAYS: No - Related Data Allergies/Adverse Reactions: No Known Allergies Allergy (Verified 01/02/18 14:43) Past Medical History - Past Medical History Cardiac Medical History: Reports: Hx Hypertension - ON MEDICATION Denies: Hx Coronary Artery Disease, Hx Heart Attack Pulmonary Medical History: Denies: Hx Asthma, Hx Bronchitis, Hx COPD, Hx Pneumonia Neurological Medical History: Denies: Hx Cerebrovascular Accident, Hx Seizures Renal/ Medical History: Denies: Hx Peritoneal Dialysis Musculoskeltal Medical History: Reports Hx Arthritis - BACK Past Surgical History: Reports: Hx Orthopedic Surgery, Hx Thyroid Surgery - Immunizations Hx Diphtheria, Pertussis, Tetanus Vaccination: No - UNSURE History of Influenza Vaccine for 07/2017 - 12/2017 Season: No Physical Exam - Vital signs Vitals: Temp Pulse Resp BP Pulse Ox 97.5 F 98 16 127/86 H 100 01/14/18 20:03 01/14/18 20:03 01/14/18 20:03 01/14/18 20:03 01/14/18 20:03 Course - Vital Signs Vital signs: Temp Pulse Resp BP Pulse Ox 97.5 F 98 16 127/86 H 100 01/14/18 20:03 01/14/18 20:03 01/14/18 20:03 01/14/18 20:03 01/14/18 20:03
[2018-01-14] MEDS ORDERED: ASPIRIN 81 MG TABLET, CHEWABLE PO ONE (20:15)
--- NOTE | 2018-01-14 21:49 | EKG REPORT ---
SEVERITY:- ABNORMAL ECG - SINUS RHYTHM INFERIOR INFARCT, AGE INDETERMINATE ANTEROLATERAL INFARCT, AGE INDETERMINATE : Confirmed by: Jameel Shaw 14-Jan-2018 21:49:09
--- NOTE | 2018-01-14 22:27 | ER Document Report ---
ED General - General Chief Complaint: Chest Pain > 30 Stated Complaint: CHEST PAIN Time Seen by Provider: 01/14/18 20:12 Mode of Arrival: Ambulatory Information source: Patient, Parent Notes: 52-year-old male with a history of liver cancer, hypertension, GERD, peritoneal dialysis presents from home with complaint of chest pain that started 1 day prior to arrival. Patient describes the pain as located in his left chest, sharp, burning and intermittent. Patient states pain lasts approximately 20-30 seconds at a time. Pain occurs at rest or with activity. He does have associated shortness of breath and nausea without vomiting. Patient states pain is worse with deep breathing and drinking cold fluids. He is currently undergoing chemotherapy at [facility]. His last chemo treatment was 2 days prior to arrival. Patient denies prior history of PE or DVT. Patient denies fever, cough, recent illness, abdominal pain, back pain, dysuria, lower extremity edema. TRAVEL OUTSIDE OF THE [place] IN LAST 30 DAYS: No - HPI Onset: Yesterday Onset/Duration: Gradual, Intermittent Quality of pain: Burning, Stabbing Severity: Mild Pain Level: 1 Associated symptoms: Chest pain, Hurts to breath, Nausea, Shortness of breath. denies: Nonproductive cough, Productive cough, Fever, Headache, Leg swelling, Vomiting Exacerbated by: Deep breathing Relieved by: Denies Similar symptoms previously: No Recently seen / treated by doctor: Yes - Related Data Allergies/Adverse Reactions: No Known Allergies Allergy (Verified 01/02/18 14:43) Past Medical History - General Information source: Patient, Parent, [facility] Records - Social History Smoking Status: Former Smoker Chew tobacco use (# tins/day): No Frequency of alcohol use: None Drug Abuse: None Family History: Reviewed & Not Pertinent Patient has suicidal ideation: No Patient has homicidal ideation: No - Past Medical History Cardiac Medical History: Reports: Hx Hypertension - ON MEDICATION Denies: Hx Coronary Artery Disease, Hx Heart Attack Pulmonary Medical History: Denies: Hx Asthma, Hx Bronchitis, Hx COPD, Hx Pneumonia Neurological Medical History: Denies: Hx Cerebrovascular Accident, Hx Seizures Renal/ Medical History: Denies: Hx Peritoneal Dialysis Musculoskeltal Medical History: Reports Hx Arthritis - BACK Past Surgical History: Reports: Hx Orthopedic Surgery, Hx Thyroid Surgery - Immunizations Hx Diphtheria, Pertussis, Tetanus Vaccination: No - UNSURE Review of Systems - Review of Systems Notes: Patient denies fever, cough, recent illness, abdominal pain, back pain, dysuria , lower extremity edema. Admits to chest pain, shortness of breath, nausea, chills. Physical Exam - Vital signs Vitals: Temp Pulse Resp BP Pulse Ox 97.5 F 98 16 127/86 H 100 01/14/18 20:03 01/14/18 20:03 01/14/18 20:03 01/14/18 20:03 01/14/18 20:03 Interpretation: Normal. No: Hypotensive, Hypertensive, Hypoxic, Tachypneic, Febrile Notes: PHYSICAL EXAMINATION: GENERAL: Well-appearing, well-nourished and in no acute distress. Patient does not appear toxic, he does appear mildly dehydrated. HEAD: Atraumatic, normocephalic. EYES: Pupils equal round and reactive to light, extraocular movements intact, sclera anicteric, conjunctiva are normal. ENT: Nares patent, oropharynx clear without exudates. Moist mucous membranes. NECK: Normal range of motion, supple without lymphadenopathy LUNGS: Breath sounds clear to auscultation bilaterally and equal. No wheezes rales or rhonchi. HEART: Regular rate and rhythm without murmurs ABDOMEN: Soft, nontender, distended abdomen. No guarding, no rebound. No masses appreciated. Musculoskeletal: Normal range of motion, no pitting or edema. No cyanosis. NEUROLOGICAL: Cranial nerves grossly intact. Normal speech, normal gait. Normal sensory, motor exams PSYCH: Normal mood, normal affect. SKIN: Warm, Dry, normal turgor, no rashes or lesions noted. Course - Re-evaluation Re-evalutation: Laboratory 01/14/18 01/14/18 01/14/18 23:10 23:10 23:10 WBC 14.1 H RBC 3.42 L Hgb 11.6 L Hct 35.0 L MCV 102 H MCH 33.9 H MCHC 33.2 RDW 21.2 H Plt Count 202 Total Counted 100 Seg Neutrophils % Not Reportable Seg Neuts % (Manual) 94 H Lymphocytes % Not Reportable Lymphocytes % (Manual) 2 L Monocytes % Not Reportable Monocytes % (Manual) 4 Eosinophils % Not Reportable Eosinophils % (Manual) 0 Basophils % Not Reportable Basophils % (Manual) 0 Absolute Neutrophils Not Reportable Abs Neuts (Manual) 13.3 H Absolute Lymphocytes Not Reportable Abs Lymphs (Manual) 0.3 L Absolute Monocytes Not Reportable Abs Monocytes (Manual) 0.6 Absolute Eosinophils Not Reportable Absolute Eos (Manual) 0.0 Absolute Basophils Not Reportable Abs Basophils (Manual) 0.0 Hypersegmented Neuts PRESENT Platelet Comment ADEQUATE Anisocytosis 3+ Macrocytosis 1+ Sodium 125.8 L Potassium 5.9 H Chloride 95 L Carbon Dioxide 22 Anion Gap 9 BUN 54 H Creatinine 1.81 H Est GFR ( Amer) 48 L Est GFR (Non-Af Amer) 40 L Glucose 166 H Calcium 7.7 L Total Bilirubin 1.4 H Direct Bilirubin 0.7 H Neonat Total Bilirubin Not Reportable Neonat Direct Bilirubin Not Reportable Neonat Indirect Bili Not Reportable AST 95 H ALT 67 Alkaline Phosphatase 423 H Troponin I < 0.012 Total Protein 5.0 L Albumin 2.6 L Chest/Abdomen CTA 01/14/18 20:15 IMPRESSION: 1. No pulmonary embolus identified. 2. Numerous pulmonary nodules, the largest measuring 2.3 cm in the right lower lobe, compatible with metastatic disease. 3. Mediastinal lymphadenopathy compatible with metastatic disease. 4. Extensive hypodensities of the visualized portions of the liver concerning for metastatic disease with ascites. This exam was performed according to our departmental dose-optimization program, which includes automated exposure control, adjustment of the mA and/or kV according to patient size and/or use of iterative reconstruction technique. 01/14/18 22:29 52-year-old male with a history of liver cancer, hypertension, GERD, peritoneal dialysis presents from home with complaint of chest pain that started 1 day prior to arrival. Patient describes the pain as located in his left chest, sharp, burning and intermittent. Patient states pain lasts approximately 20-30 seconds at a time. Pain occurs at rest or with activity. He does have associated shortness of breath and nausea without vomiting. Patient states pain is worse with deep breathing and drinking cold fluids. He is currently undergoing chemotherapy at [facility] 01/14/18 22:29 Patient states that he has a [employer]. He is currently looking for the card to verify. 01/15/18 01:28 Spoke to the patient and his mother regarding admission secondary to hyponatremia, hyperkalemia, acute kidney injury. Patient is adamantly refusing admission at this time. I have discussed the fact that his low sodium could cause seizures. We discussed that his high potassium could result in a dysrhythmia. He repeated these risks back to me and still declines admission. I asked him if I could at least administer some medication and fluids and he stated "I am not going to lay here for 4 hours". 01/15/18 02:43 Discussed admission with the hospitalist who feels the patient is stable for discharge. The nurse overheard the patient saying that his mother has been "feeding him potassium supplements". When questioned patient states that he was prescribed potassium supplements prior to discharge from [facility] last week due to low potassium. Patient has no peritoneal signs, STACIA likely secondary to poor p.o. intake which the patient admits. Advised patient to stop potassium supplementation. He does have an upcoming appointment at [facility] in 3 days. Patient and mother comfortable with discharge home. Patient to receive IV fluids, calcium, insulin, dextrose. Troponin and repeat EKG remained within normal limits. 01/15/18 07:08 - Vital Signs Vital signs: Temp Pulse Resp BP Pulse Ox 98.7 F 98 22 H 119/85 100 01/15/18 04:01 01/14/18 20:03 01/15/18 04:17 01/15/18 04:17 01/15/18 04:17 - Laboratory Result Diagrams: 01/14/18 23:10 01/14/18 23:10 Laboratory results interpreted by me: 01/14/18 01/14/18 23:10 23:10 WBC 14.1 H RBC 3.42 L Hgb 11.6 L Hct 35.0 L MCV 102 H MCH 33.9 H RDW 21.2 H Seg Neuts % (Manual) 94 H Lymphocytes % (Manual) 2 L Abs Neuts (Manual) 13.3 H Abs Lymphs (Manual) 0.3 L Sodium 125.8 L Potassium 5.9 H Chloride 95 L BUN 54 H Creatinine 1.81 H Est GFR ( Amer) 48 L Est GFR (Non-Af Amer) 40 L Glucose 166 H Calcium 7.7 L Total Bilirubin 1.4 H Direct Bilirubin 0.7 H AST 95 H Alkaline Phosphatase 423 H Total Protein 5.0 L Albumin 2.6 L - Diagnostic Test Radiology reviewed: Pending, Image reviewed, Reports reviewed - EKG Interpretation by Me EKG shows normal: Sinus rhythm Rate: Normal Rhythm: NSR Discharge - Discharge Clinical Impression: Hyperkalemia, Hyponatremia, Acute kidney injury, Chest pain in adult Condition: Fair Disposition: HOME, SELF-CARE Instructions: Chest Pain of Unclear Cause ([facility]), Hyponatremia ([facility]), Kidney Injury ([facility]) Additional Instructions: Please stop taking her potassium supplementation. Please try and take in water. Keep your upcoming appointment with [facility]. His return if chest pain returns or he becomes short of breath, unable to tolerate fluids. Referrals: KATRINA GARCIAS MD [Primary Care Provider] - Follow up in 3-5 days
[2018-01-14 23:46] LABS: HEMOGLOBIN 11.6 g/dL (13.5-17.0); MEAN CORPUSCULAR HEMOGLOBIN 33.9 pg (27.0-33.4); MEAN CORPUSCULAR HGB CONC 33.2 g/dL (32.0-36.0); MEAN CORPUSCULAR VOLUME 102 fl (80-97); PLATELET COUNT 202 10^3/uL (150-450); RED BLOOD COUNT 3.42 10^6/uL (4.35-5.55); RED CELL DISTRIBUTION WIDTH 21.2 % (11.5-14.0); WHITE BLOOD COUNT 14.1 10^3/uL (4.0-10.5)
[2018-01-14 23:56] LABS: ALANINE AMINOTRANSFERASE 67 U/L (21-72); ALBUMIN 2.6 g/dL (3.5-5.0); ALKALINE PHOSPHATASE 423 U/L (38-126); ANION GAP 9 (5-19); ASPARTATE AMINO TRANSFERASE 95 U/L (17-59); BILIRUBIN,DIRECT 0.7 mg/dL (0.0-0.4); BILIRUBIN,TOTAL 1.4 mg/dL (0.2-1.3); BLOOD UREA NITROGEN 54 mg/dL (7-20); CALCIUM 7.7 mg/dL (8.4-10.2); CARBON DIOXIDE 22 mmol/L (22-30); CHLORIDE 95 mmol/L (98-107); GLUCOSE 166 mg/dL (75-110); POTASSIUM 5.9 mmol/L (3.6-5.0); SODIUM 125.8 mmol/L (137-145)
[2018-01-15 00:08] LABS: ABSOLUTE LYMPHOCYTES# (MANUAL) 0.3 10^3/uL (0.5-4.7); ABSOLUTE MONOCYTES # (MANUAL) 0.6 10^3/uL (0.1-1.4); ABSOLUTE NEUTROPHILS# (MANUAL) 13.3 10^3/uL (1.7-8.2); BASOPHILS % (MANUAL) 0 % (0-2); EOSINOPHILS % (MANUAL) 0 % (0-6); LYMPHOCYTES % (MANUAL) 2 % (13-45); MONOCYTES % (MANUAL) 4 % (3-13); SEGMENTED NEUTROPHILS % (MAN) 94 % (42-78); TOTAL CELLS COUNTED 100
[2018-01-15 00:09] LABS: HYPERSEGMENTED NEUTROPHILS PRESENT; PLATELET COMMENT ADEQUATE
[2018-01-15 00:12] LABS: ANISOCYTOSIS 3+
--- NOTE | 2018-01-15 01:16 | RADIOLOGY REPORT (SQ) ---
EXAM DESCRIPTION: CTA of the chest per PE protocol with contrast. CLINICAL HISTORY: hx cancer, now CP SOB; eval PE vs tamponade COMPARISON: None Available. TECHNIQUE: CTA of the chest obtained following the uncomplicated intravenous administration of 100 mL Isovue-370. 3-D/MIP reformatted images of the chest available for evaluation. DLP: 870.36 mGycm FINDINGS: Chest: Pulmonary arteries: Contrast bolus is adequate.No filling defects identified in the pulmonary arteries to suggest pulmonary embolus. Thyroid: No thyroid tissue identified on this study. Great Vessels:Great vessels have normal anatomic configuration. Thoracic Aorta:No abnormalities of the thoracic aorta identified. Heart:No cardiomegaly, significant pericardial effusion, or coronary artery atherosclerosis Lymph Nodes: Enlarged subcarinal lymph node measuring 2.1 cm in short axis dimension. Enlarged right paratracheal lymph node measuring 1.2 cm in short axis dimension. No definite axillary or supraclavicular lymphadenopathy identified. Esophagus:No abnormalities of the esophagus identified. Other:No additional findings. Lungs: Numerous extensive pulmonary nodules identified, with the largest measuring up to 2.3 cm in the right lower lobe, throughout the lungs bilaterally compatible with metastatic disease. Some of these nodules demonstrate minimal cavitation. Pleura:No pleural effusion or pneumothorax. Trachea/Airways:No abnormalities of the visualized trachea or airways. Bones: Lytic osseous lesion involving the T9 9 vertebral body compatible with metastatic disease. Lytic lesion involving the sternum with nondisplaced remote left rib fractures are healed. Pathologic fracture. Upper Abdomen: Limited images of the upper abdomen demonstrate ascites. Extensive hypodensities throughout the liver concerning for metastatic disease. No definite abnormalities of the spleen. IMPRESSION: 1. No pulmonary embolus identified. 2. Numerous pulmonary nodules, the largest measuring 2.3 cm in the right lower lobe, compatible with metastatic disease. 3. Mediastinal lymphadenopathy compatible with metastatic disease. 4. Extensive hypodensities of the visualized portions of the liver concerning for metastatic disease with ascites. This exam was performed according to our departmental dose-optimization program, which includes automated exposure control, adjustment of the mA and/or kV according to patient size and/or use of iterative reconstruction technique.
[2018-01-15] MEDS ORDERED: CALCIUM GLUCONATE 1000 MG/10 ML INJ IV ONE (01:19)
[2018-01-15] MEDS ORDERED: NORMAL SALINE 1000 ML 1,000 ML IV ONE (01:19)
[2018-01-15] MEDS ORDERED: INSULIN REG, HUMAN 100 UNIT/ML 3 ML VIAL (PYX) IV ONE (01:30)
[2018-01-15] MEDS ORDERED: DEXTROSE 50%-WATER 25 GM/50 ML DISP.SYRIN IV ONE (01:30)
[2018-01-15 04:22] VITALS: BP 119/85
--- NOTE | 2018-01-15 10:26 | EKG REPORT ---
SEVERITY:- ABNORMAL ECG - SINUS RHYTHM ANTERIOR INFARCT, AGE INDETERMINATE : Confirmed by: Jameel Shaw 15-Jan-2018 10:26:00
== END 2018-01-15 04:24 | disposition home or self-care (01) ==
LOC: ER 19:46
DX: R07.9 Chest pain, unspecified (principal); N17.9 Acute kidney failure, unspecified; E87.5 Hyperkalemia; E87.1 Hypo-osmolality and hyponatremia; I10 Essential (primary) hypertension; R06.02 Shortness of breath; R68.83 Chills (without fever); R11.0 Nausea; R91.8 Other nonspecific abnormal finding of lung field; C22.8 Malignant neoplasm of liver, primary, unspecified as to type; Z79.899 Other long term (current) drug therapy; Z87.19 Personal history of other diseases of the digestive system; Z87.891 Personal history of nicotine dependence
CPT/HCPCS: 93005 ×2; 99285; 96361; 96375; 96365; 36415; 85025; 80076; 80048; 84484; 71275; 93010 ×2; J0610; J3490; J1815; J7030